=== PATIENT | male | born 1965 | race Caucasian/White ===

== ENCOUNTER 2018-12-17 05:38 | Day surgery (SDC) | payer BC ==
[2018-12-16 15:41] LABS: BASOPHILS 0.3 % (0-2); HEMOGLOBIN 14.8 g/dL (13.5-17.5); IMMATURE GRANULOCYTES 0.3 % (0-5); LYMPHOCYTES 29.9 % (15-50); MCHC 34.4 g/dL (31.0-37.0); MCV 84.3 fL (80.0-100.0); MEAN PLATELET VOLUME 10.2 fL (7.4-10.4); MONOCYTES 7.6 % (2-11); NEUTROPHILS 58.9 % (40-80); PLATELET COUNT 266 10x3/uL (130-400); RDW 13.3 % (11.5-14.5); WBC 9.4 10x3/uL (4.8-10.8)
[2018-12-16 16:15] LABS: CALC OSMOLALITY 284 mosm/kg (275-300); CALCIUM 8.9 mg/dL (8.5-10.1); CARBON DIOXIDE 25.2 mmol/L (21.0-32.0); CHLORIDE - SERUM 106 mmol/L (98-107); GLUCOSE 125 mg/dL (74-106); POTASSIUM - SERUM 3.8 mmol/L (3.5-5.1); SODIUM 142 mmol/L (136-145); UREA NITROGEN 16 mg/dL (7-18); eGFR NON AFRICAN AMERICAN 82 mL/min (90-120)
[~2018-12-17] VITALS: Ht 175.3 cm; Wt 103.9 kg
--- NOTE | ~2018-12-17 | OP ---
PATIENT NAME: ALF DILLON MEDICAL RECORD: [id number] :61 LOCATION:D.OPS ADMISSION DATE: SURGEON: VALE HILL MD DATE OF OPERATION: 12/17/2018 PREOPERATIVE DIAGNOSIS: Ventral hernia. POSTOPERATIVE DIAGNOSIS: Ventral hernia. PROCEDURE: Ventral hernia repair with 4.3-cm Proceed mesh. SURGEON: Vale Hill MD POWER NUT RUNNER OPERATOR: Anaya Bledsoe APRN REPORT OF PROCEDURE: The patient's abdomen was prepped and draped in sterile fashion. A semicircular incision was made on the inferior aspect of the umbilicus. Electrocautery was used to dissect through the subcutaneous tissues. We came through the umbilical stalk and dissected the hernia sac off from the inferior surface of this. The hernia defect contained fatty tissue. This fatty tissue was pushed back down into the abdominal cavity and the hernia sac was freed up down to the fascial edges. The fascial defect was about 2.5 cm in greatest diameter. It was wider than it was tall. The fascia was cleared off above and below. At this point, a 4.3-cm Proceed mesh was inserted in an underlay fashion and sutured down on all 4 sides using interrupted 0 Prolenes. We then irrigated out the wound and assured there was no sign of any bleeding. At this point, the fascia was closed transversely with running 0 Vicryl. The umbilicus was tacked down using a single interrupted 3-0 Vicryl. The subcutaneous tissues were reapproximated with interrupted 3-0 Vicryl. The skin was infused with 10 mL of 0.25% Marcaine plain and then closed with subcutaneous running 5-0 Monocryl. COMPLICATIONS: None. CONDITION: Stable. ANESTHESIA: General endotracheal and local. BLOOD LOSS: Minimal. TRANSINT:[id number] Voice Confirmation ID: [id number] DOCUMENT ID: [id number] VALE HILL MD CC: [id number] DICTATION DATE: 12/17/18900 WIRER PASSENGER CAR: 12/17/18 [id number] [place] [id number]
[~2018-12-17 05:38] MED LIST: PROTONIX40 MG PO
[2018-12-17 06:30] VITALS: BP 113/61; Ht 175.3 cm; Wt 103.9 kg
[2018-12-17] MEDS ORDERED: HYDROCODON-ACE1 EA10 PO (08:57)
== END 2018-12-17 11:30 | disposition home or self-care (01) ==
LOC: D.OPS 05:38 → D.PAN 08:00 → D.OPS 08:00
PROVIDERS: ATTEND Surgery
DX: K43.9 Ventral hernia without obstruction or gangrene (principal); Z01.812 Encounter for preprocedural laboratory examination